=== PATIENT | male | born 1995 | race Caucasian/White ===

== ENCOUNTER 2017-03-24 14:04 | Emergency (ER) | payer OTHER ==
--- NOTE | 2017-03-24 15:11 | EDM.PDOC ---
ED HPI GENERAL MEDICAL PROBLEM - General Chief Complaint: Lower Extremity Injury/Pain Stated Complaint: RIGHT FOOT INJURY Time Seen by Provider: 03/24/17 14:11 Source of Information: Reports: Patient History Limitations: Reports: No Limitations - History of Present Illness INITIAL COMMENTS - FREE TEXT/NARRATIVE: 22 year old male presents for evaluation and treatment of an injury to the right foot. Injury occurred about 1 hour prior to arrival in the ER. Patient reports he was at work. Reports a forklift ran over his right foot. Reports symptoms of right foot pain, numbness and inability to bear weight. No previous injury to the right foot. No treatments prior to arrival. Onset: Today Location: Reports: Lower Extremity, Right Context: Reports: Trauma Right Feet Pain Score (Numeric/FACES): 7 - Related Data Allergies Allergy/AdvReac Type Severity Reaction Status Date / Time No Known Allergies Allergy Verified 03/24/17 14:49 Home Meds: Home Meds . [No Known Home Meds] 03/24/17 [History] Past Medical History - Past Health History Medical/Surgical History: Denies Medical/Surgical History Social & Family History - Tobacco Use Smoking Status *Q: Never Smoker Second Hand Smoke Exposure: No - Recreational Drug Use Recreational Drug Use: No Review of Systems - Review of Systems Review Of Systems: See Below Musculoskeletal: Reports: Foot Pain (right dorsal foot) Skin: Denies: Wound Neurological: Reports: Numbness (right foot), Difficulty Walking ED EXAM, GENERAL - Physical Exam Exam: See Below Exam Limited By: No Limitations General Appearance: Alert, WD/WN, No Apparent Distress Respiratory/Chest: No Respiratory Distress Cardiovascular: Normal Peripheral Pulses, Regular Rate, Rhythm Peripheral Pulses: 2+: Posterior Tibial (L), Posterior Tibial (R), Dorsalis Pedis (L), Dorsalis Pedis (R) Extremities: Normal Inspection, Normal Capillary Refill, Limited Range of Motion (due to pain, ROM testing deferred; patient is able to wiggle toes), Other (reports tenderness to palpation to the right dorsal foot metatarsals and cuniforms) Neurological: Alert, Oriented, Normal Cognition Psychiatric: Normal Affect, Normal Mood Skin Exam: Warm, Dry. No: Ecchymosis Course - Vital Signs Last Recorded V/S: Last Vital Signs Temp 36.9 C 03/24/17 14:33 Pulse 98 03/24/17 14:33 Resp 16 03/24/17 14:33 BP 148/94 H 03/24/17 14:33 Pulse Ox 98 03/24/17 14:33 - Radiology Interpretation Free Text/Narrative:: right foot xray reviewed by myself and DR. chau. No acute fractures or dislocations appreciated. - Re-Assessments/Exams Free Text/Narrative Re-Assessment/Exam: 03/24/17 16:42 Patient was offered medication for pain but declined. I reviewed the xray results with the patient. Plan will be to treat for soft tissue injury with crutches, CIRO wrap, ice and follow-up with [facility]. Discharge instructions as documented. Departure - Departure Time of Disposition: 16:54 Disposition: Home, Self-Care 01 Condition: Fair Clinical Impression: Soft tissue injury - Discharge Information Instructions: Contusion, [id number] Referrals: PCP,None [Primary Care Provider] - Miky Garcia MD [Physician] - Forms: ED Department Discharge Additional Instructions: Ice and elevate the foot as much as possible. Crutches for the next few days and use an Ciro wrap to help with the swelling. Follow-up with occupational health next week for recheck. Crutches until then. may go to work but I would like you off of the right foot until evaluated by [facility]. Recommend Dr. Garcia at [place]. Call [phone] to schedule with him. Please return to the ER if your symptoms change or worsen.
--- NOTE | 2017-03-25 07:19 | CR ---
Right foot: Four views of the right foot were obtained. Comparison: No prior foot exam. Joint spaces are maintained. No fracture, dislocation or other bony abnormality is seen. Impression: 1. No abnormality is identified on right foot study. Diagnostic code #1
== END 2017-03-24 17:00 | disposition home or self-care (01) ==
LOC: JD.ED 14:04
DX: S99.921A Unspecified injury of right foot, initial encounter (principal); W22.8XXA Striking against or struck by other objects, initial encounter; Y99.0 Civilian activity done for income or pay
CPT/HCPCS: 73630-26-RT; 73630-RT; 99283